=== PATIENT | female | born 1990 | race Caucasian/White ===

== ENCOUNTER → 2019-04-02 13:12 | Outpatient (CLI) | payer OTHER, MEDICAID, SELFPAY ==
--- NOTE | 2019-04-02 | DI.US.S_ITS ---
PROCEDURE: US OB >= 14 WEEKS FETUS INDICATIONS: 20 WEEK ANATOMICAL SURVEY OUTSIDE/PRIOR DATING DATA: Last menstrual period (LMP): 11/14/18. LMP-based estimated date of delivery (DERRICK): 08/21/19. First dating scan (date and location): 04/02/19. Estimated date of delivery (DERRICK) from first dating scan: 08/24/19. TECHNIQUE: Real-time scanning was performed of the fetus, with image documentation and biometric measurements. Endovaginal scanning: No COMPARISON: [facility], OB COMPLETE 14WKS OR MORE, 11/01/2016, 10:21. FINDINGS: General: A single living intrauterine gestation is present. Presentation: Vertex Placenta: Placental position is anterior, without previa Amniotic fluid index: 16.2 cm, normal range is 5-24 cm. heart rate: 162 beats per minute. Maternal cervical canal: 3.7 cm long. Normal lower limit is 2.5 cm. biometrics: Biparietal diameter: 19 weeks 5 days Head circumference: 19 weeks 3 days Abdominal circumference: 19 weeks 2 days Femur length: 19 weeks 2 days Estimated gestational age from initial scan or LMP: 19 weeks 3 days Composite gestational age from present scan: 19 weeks 3 days Estimated weight and percentile: 284 g; 18 percentile Measurement variability for biometric dating: +/- 7 days from 14 weeks to 15 weeks 6 days gestation, +/- 10 days from 16 weeks to 21 weeks 6 days gestation, +/- 2 weeks from 22 weeks to 27 weeks 6 days gestation, +/- 3 weeks for 28 weeks gestation or later. weight reference: 4500 g or EFW >90/95% is considered macrosomia or large for gestational age. EFW <10% is small for gestational age. EFW 5% or less is considered intra-uterine growth restriction. Anatomic survey: Neuro: Ventricles are non-dilated at less than 10 mm. Cisterna magna is normal at 3-11 mm. Cerebellum is normal in size and morphology. Nuchal skin fold: Normal at less than 6 mm between 14-21 weeks gestational age. Face: Nose and lips, facial profile are normal. Spine: No evidence for spina bifida. Heart: 4-chambered heart is present, with normal ventricular outflow tracts. Diaphragm: Diaphragm is intact. Stomach: Left-sided stomach is present. Kidneys: No hydronephrosis. Normal is less than 5 mm in 2nd trimester, less than 7 mm in 3rd trimester. Cord: Not well-visualized. Bladder: Normal in size. Extremities: All 4 extremities identified. IMPRESSION: Single living IUP present with a mean composite gestational age of 19 weeks 3 days. Umbilical cord insertion site not well-seen; otherwise normal anatomic survey. Dictated by: Wilfredo REDMOND Interpreted: Daya Luna MD on 04/02/2019 at 15:58 Approved by: Daya Luna M.D. on 04/05/2019 at 17:32
== END ==
PROVIDERS: PCP Registered Nurse; Visit Provider Midwife
DX: Z36.89 Encounter for other specified antenatal screening (principal); Z3A.19 19 weeks gestation of pregnancy
CPT/HCPCS: 76811

== ENCOUNTER → 2025-09-01 12:20 | Outpatient (CLI) | payer SELFPAY ==
[2025-09-01 13:28] LABS: Influenza A - CEPHEID Flu A NEGATIVE (NEGATIVE); Influenza B - CEPHEID Flu B NEGATIVE (NEGATIVE)
[2025-09-01 13:31] LABS: COVID-19 CEPHEID 4-PLEX PCR Negative (Negative)
== END ==
PROVIDERS: PCP Registered Nurse; Visit Provider Nurse Practitioner Family
DX: J02.9 Acute pharyngitis, unspecified (principal)
CPT/HCPCS: 87637